=== PATIENT | male | born 1975 | race African-American/Black ===

== ENCOUNTER 2017-06-02 20:41 | Emergency (ER) | payer MEDICARE ==
[~2017-06-02] VITALS: Ht 175.3 cm; Wt 72.6 kg
[~2017-06-02 20:41] MED LIST: NAPR500T4 PO
[2017-06-02 20:52] VITALS: BP 144/87
[2017-06-02] MEDS ORDERED: IV NORMAL SALINE 1000ML BAG 1,000 ML IV SCH (20:54)
[2017-06-02 21:04] LABS: BASO # 0.1 x10^3/uL (0.0-0.2); BASO % 1 % (0-3); EOS % 1 % (0-3); HEMATOCRIT 42.7 % (39.0-53.0); HEMOGLOBIN 14.7 g/dL (13.0-17.5); LYMPH % 43 % (24-48); MEAN CORPUSCULAR HEMOGLOBIN 34 pg (25-35); MEAN CORPUSCULAR HGB CONC 34 g/dL (31-37); MEAN CORPUSCULAR VOLUME 99 fL (79-100); MONO % 9 % (0-9); NEUT % 46 % (31-73); PLATELET COUNT 299 x10^3/uL (140-400); RED BLOOD COUNT 4.33 x10^6/uL (4.30-5.70); RED CELL DISTRIBUTION WIDTH 12.5 % (11.5-14.5); WHITE BLOOD COUNT 7.1 x10^3/uL (4.0-11.0)
[2017-06-02 21:11] LABS: BARBITURATES NEG (NEG); BENZODIAZEPINES NEG (NEG); CANNABINOIDS NEG (NEG); COCAINE NEG (NEG); METHADONE NEG (NEG); OPIATES NEG (NEG); PHENCYCLIDINE NEG (NEG)
[2017-06-02 21:12] LABS: CALCIUM 9.5 mg/dL (8.5-10.1); GFR 100.1; POTASSIUM 3.4 mmol/L (3.5-5.1)
[2017-06-02] MEDS ORDERED: ZIPRASIDONE IM 20 MG VIAL. IM ONE (21:30)
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
== END 2017-06-02 22:09 | disposition home or self-care (01) ==
LOC: ER 20:41
DX: S02.2XXA Fracture of nasal bones, initial encounter for closed fracture (principal); S09.90XA Unspecified injury of head, initial encounter; F10.129 Alcohol abuse with intoxication, unspecified; J45.909 Unspecified asthma, uncomplicated; F31.9 Bipolar disorder, unspecified; M79.7 Fibromyalgia; F20.9 Schizophrenia, unspecified; F43.10 Post-traumatic stress disorder, unspecified; F90.9 Attention-deficit hyperactivity disorder, unspecified type; G47.00 Insomnia, unspecified; Y04.0XXA Assault by unarmed brawl or fight, initial encounter; Y93.89 Activity, other specified; Y92.89 Other specified places as the place of occurrence of the external cause; Y99.8 Other external cause status
CPT/HCPCS: 36415; 70450; 70486; 72125; 80048; 80307; 85025; 99285; G0480; G0479

== ENCOUNTER 2017-07-17 16:41 | Emergency (ER) | payer MEDICARE ==
[~2017-07-17] VITALS: Ht 172.7 cm; Wt 72.6 kg
[2017-07-17 17:05] VITALS: BP 127/74
[2017-07-17] MEDS ORDERED: CLOT15CR4 TP (17:27)
--- NOTE | 2017-07-17 17:27 | PHYS DOC ---
Past Medical History Past Medical History: Asthma, Bipolar, Bronchitis, Depression, Fibromyalgia, Schizophrenia Additional Past Medical Histor: PTSD, INSOMNIA, ADHD Past Surgical History: No Surgical History Alcohol Use: Occasionally Drug Use: Marijuana Adult General Chief Complaint Chief Complaint: FINGER INJURY HPI HPI Patient is a 41 year old male who presents with rash on the right index finger that he noted this week. Patient denies any fever. 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 Review of Systems Review of Systems Constitutional: Denies fever or chills [] Musculoskeletal: Denies back pain or joint pain [] Integument: Right index finger rash Neurologic: Denies headache, focal weakness or sensory changes [] All other systems were reviewed and found to be within normal limits, except as documented in this note. Allergies Allergies Allergies Coded Allergies Type Severity Reaction Last Updated Verified No Known Drug Allergies 10/05/15 No Physical Exam Physical Exam Constitutional: Well developed, well nourished, no acute distress, non-toxic appearance. [] Skin: Warm, dry, right index finger with a fungal type of rash on the ED aspect of the finger proximal end. Back: No tenderness, no CVA tenderness. [] Extremities: No tenderness, no cyanosis, no clubbing, ROM intact, no edema. [] Neurologic: Alert and oriented X 3, normal motor function, normal sensory function, no focal deficits noted. [] Psychologic: Affect normal, judgement normal, mood normal. [] Current Patient Data Vital Signs Vital Signs Date Time Temp Pulse Resp B/P (MAP) Pulse Ox O2 Delivery O2 Flow Rate FiO2 07/17/17 17:05 98.0 81 16 98 Room Air 98.0 EKG EKG [] Radiology/Procedures Radiology/Procedures [] Course & Med Decision Making Course & Med Decision Making Pertinent Labs and Imaging studies reviewed. (See chart for details) Patient has cutaneous candidiasis to the right index finger. Recommended he keeps his finger clean and dry. Discharged with clotrimazole cream. Follow-up with his own doctor in 1-2 weeks. Dragon Disclaimer Dragon Disclaimer This electronic medical record was generated, in whole or in part, using a voice recognition dictation system. Departure Departure Impression: Primary Impression: Cutaneous candidiasis Disposition: HOME, SELF-CARE Condition: STABLE Referrals: NO PCP (PCP) follow up with your doctor in two weeks Patient Instructions: Cutaneous Candidiasis Additional Instructions: You were seen for fungal infection to the right index finger. Keep the area clean and dry. Apply the cream provided as ordered. This kind of infection takes a while to clear. Be patient with the treatment. Scripts Clotrimazole (CLOTRIMAZOLE) 15 Gm Cream..g. 1 JIGAR TP TID, #45 GM 1 Refill Prov: MOISES CABRERA APRN 07/17/17 MOISES CABRERA APRN Jul 17, 2017 17:27
== END 2017-07-17 17:37 | disposition home or self-care (01) ==
LOC: ER 16:41
DX: B37.2 Candidiasis of skin and nail (principal); J45.909 Unspecified asthma, uncomplicated; F31.9 Bipolar disorder, unspecified; M79.7 Fibromyalgia; F20.9 Schizophrenia, unspecified; F43.10 Post-traumatic stress disorder, unspecified; F90.9 Attention-deficit hyperactivity disorder, unspecified type; G47.00 Insomnia, unspecified; F12.10 Cannabis abuse, uncomplicated
CPT/HCPCS: 99283

== ENCOUNTER 2020-09-12 11:49 | Emergency (ER) | payer MEDICARE, OTHER ==
[~2020-09-12] VITALS: Ht 175.3 cm; Wt 86.0 kg
[~2020-09-12 11:49] MED LIST changes: +CLOT15CR23 TP; +NAPR-514 PO; -NAPR500T4 PO
[2020-09-12 12:01] VITALS: BP 142/90
[2020-09-12] MEDS ORDERED: HYDR-2761 PO (12:03)
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
== END 2020-09-12 12:15 | disposition home or self-care (01) ==
LOC: ER 11:49
DX: K08.89 Other specified disorders of teeth and supporting structures (principal); J45.909 Unspecified asthma, uncomplicated; F43.10 Post-traumatic stress disorder, unspecified; F31.9 Bipolar disorder, unspecified; F20.9 Schizophrenia, unspecified; F17.200 Nicotine dependence, unspecified, uncomplicated
CPT/HCPCS: 99283